=== PATIENT | male | born 1960 | race Caucasian/White ===

== ENCOUNTER 2020-05-24 12:21 | Inpatient (IN) | payer MEDICARE, MEDICAID ==
[~2020-05-24] VITALS: Ht 172.7 cm; Wt 55.8 kg
--- NOTE | 2020-05-24 12:44 | NUR ---
PATIENT BIB EMS WITH CHIEF C/O WEAKNESS WITH STANDING. PER EMS PATIENT HAS HAD 5 GLF'S IN THE LAST 3 WEEKS, WITH THE MOST RECENT ONE BEING LAST NIGHT WITH POSITIVE LOC, PATIENT UNSURE HOW LONG HE WAS DOWN FOR. PATIENT REPORTS DIARRHEA FOR THE LAST 3 DAYS, AND EVERYTIME HE STANDS HE FEELS WEAK, LIGHTHEADED AND NAUSEATED. VSS EN ROUTE, 18 GAUGE IV STARTED LEFT AC EN ROUTE. PATIENT REPORTS DRINKING "7 BEERS PER DAY," STATES LAST DRINK WAS "3-4 DAYS AGO." RUPERT VSS, SIDE RAILS UP X2, URINAL WITHIN REACH.
--- NOTE | 2020-05-24 13:36 | NUR ---
PATIENT RESTING IN GURNEY WITH EYES CLOSED, RESP EVEN AND UNLABORED, VSS, SIDE RAILS UP X2, CALL LIGHT WITHIN REACH. WAITING FOR PROVIDER ORDERS.
--- NOTE | 2020-05-24 13:42 | NUR ---
ERMD AT BEDSIDE FOR EVALUATION.
[2020-05-24] MEDS ORDERED: SODIUM CHLORIDE 0.9% 1,000ML IVBOLUS ONE (14:00)
[2020-05-24] MEDS ORDERED: SODIUM CHLORIDE FLUSH 10ML SYR IVF ONE (14:00)
--- NOTE | 2020-05-24 14:00 | NUR ---
PATIENT TO IMAGING. Addendum: 05/24/20 at 1410 by [email or web address] PATIENT NOT IN IMAGING, X-RAY AT BEDSIDE.
[2020-05-24 14:09] LABS: BASOPHILS % (AUTO) 0 % (0-1); EOSINOPHILS % (AUTO) 1 % (1-7); LYMPHOCYTES % (AUTO) 7 % (22-44); MEAN CORPUSCULAR HEMOGLOBIN 33.5 pg (27.5-34.5); MEAN CORPUSCULAR HGB CONC 34.6 g/dL (33.2-36.2); MEAN PLATELET VOLUME 7.8 fL (7.4-10.4); MONOCYTES % (AUTO) 13 % (2-9); NEUTROPHILS % (AUTO) 80 % (42-75); PLATELET COUNT 191 x10^3/uL (130-400); RED BLOOD COUNT 3.79 x10^6/uL (4.38-5.82); RED CELL DISTRIBUTION WIDTH 13.4 % (9.4-14.8)
--- NOTE | 2020-05-24 14:10 | NUR ---
URINE SAMPLE COLLECTED AND SENT TO LAB, [facility]ARCELA GARCIA, PATIENT TO CT.
[2020-05-24 14:21] LABS: ALANINE AMINOTRANSFERASE 55 U/L (12-78); ALBUMIN 3.4 g/dL (3.4-5.0); ANION GAP 8 mmol/L (5-15); CALCIUM 8.6 mg/dL (8.5-10.1); CHLORIDE 87 mmol/L (98-107); CREATININE 0.71 mg/dL (0.7-1.3)
[2020-05-24 14:28] LABS: MICROSCOPIC NOT IND
[2020-05-24 14:31] LABS: ALKALINE PHOSPHATASE 114 U/L (45-117); BILIRUBIN,TOTAL 0.6 mg/dL (0.2-1.0); CREATINE KINASE, TOTAL 26 U/L (39-308); TOTAL PROTEIN 7.1 g/dL (6.4-8.2); TROPONIN I < 0.015 ng/mL (0.000-0.045)
[2020-05-24 14:39] LABS: MD NO
--- NOTE | 2020-05-24 15:18 | NUR ---
PATIENT RESTING IN GURNEY, NADN, WARM BLANKET PROVIDED, SIDE RAILS UP X2, CALL LIGHT WITHIN REACH. PATIENT UP FOR RECHECK.
[2020-05-24] MEDS ORDERED: POTASSIUM CHLORIDE 20 MEQ PACKET PO ONE (15:30)
[2020-05-24] MEDS ORDERED: SODIUM CHLORIDE 0.9% 1,000 ML IV ONE (15:30)
--- NOTE | 2020-05-24 15:40 | NUR ---
ERMD AT BEDSIDE FOR EVALUATION. Addendum: 05/24/20 at 1623 by [email or web address] ERMD AT BEDSIDE TO DISCUSS POC.
--- NOTE | 2020-05-24 16:40 | NUR ---
PATIENT SITTING IN GURNEY WATCHING TV, NADN, PATIENT'S BP 200/112, ERMD NOTIFIED,OTHER VSS, SIDE RAILS UP X2, CALL LIGHT WITHIN REACH. WAITING FOR ROOM ASSIGNMENT UPSTAIRS.
--- NOTE | 2020-05-24 16:48 | NUR ---
ATTEMPTED TO CALL REPORT, ON HOLD FOR SEVERAL MINUTES, WILL TRY AGAIN.
[2020-05-24] MEDS ORDERED: POTASSIUM CHLORIDE 20 MEQ PACKET ONE (16:50)
--- NOTE | 2020-05-24 16:56 | NUR ---
REPORT CALLED TO FILOMENA BAUTISTA ON MEDICAL TELEMETRY FOR TRANSFER OF PATIENT CARE.
[2020-05-24] MEDS ORDERED: LABETALOL 5MG/ML, 20ML ONE (17:14)
--- NOTE | 2020-05-24 17:26 | NUR ---
PATIENT MEDICATED PER eMAR FOR BP, WILL RECHECK BP BEFORE PATIENT TRANSFERS TO FLOOR.
--- NOTE | 2020-05-24 17:40 | NUR ---
PATIENT TRANSFERRED TO FLOOR IN STABLE CONDITION VIA GURNEY WITH PRINCIPAL ACCOUNT CLERK. ALL PATIENT BELONGINGS TAKEN TO FLOOR WITH PATIENT.
[2020-05-24 17:42] VITALS: BP 173/105
[2020-05-24] MEDS ORDERED: LABETALOL 5MG/ML, 20ML IVPush ONE (18:00)
[2020-05-24] MEDS ORDERED: ONDANSETRON 2MG/ML, 2ML IVPush PRN (19:30)
[2020-05-24] MEDS ORDERED: GABAPENTIN 300 MG CAPSULE PO PRN (19:30)
[2020-05-24] MEDS ORDERED: hydrALAzine 20 MG/ML, 1ML IVPush PRN (19:30)
[2020-05-24] MEDS ORDERED: LORazepam 2 MG/ML, 1ML IV PRN ×5 (19:30)
[2020-05-24] MEDS ORDERED: DOCUSATE 100 MG CAPSULE PO PRN (19:30)
[2020-05-24] MEDS ORDERED: BISACODYL 10 MG SUPP PR PRN (19:30)
[2020-05-24] MEDS ORDERED: LORazepam 1MG TABLET PO PRN (19:30)
[2020-05-24] MEDS ORDERED: ACETAMINOPHEN 325 MG TABLET PO PRN (19:30)
[2020-05-24] MEDS ORDERED: ONDANSETRON ODT 4 MG PO PRN (19:30)
[2020-05-24] MEDS ORDERED: POTASSIUM CHLORIDE 40 MEQ in SODIUM CHLORIDE 0.9% 500 ML IV ONE (20:30)
[2020-05-24] MEDS: SODIUM CHLORIDE 0.9% 1,000 ML IV SCH (20:36)
[2020-05-24] MEDS: NICOTINE 14MG/24 HR PATCH.TD24 TD SCH (20:36)
[2020-05-24] MEDS: SODIUM CHLORIDE 1 GM TABLET PO SCH (20:36)
[2020-05-24] MEDS: HEPARIN 5,000 UNITS/ML, 1ML SQ SCH (20:37)
[2020-05-24] MEDS: AMLODIPINE 5 MG TABLET PO SCH (20:42)
[2020-05-24 20:51] VITALS: BP_SYST 159; BP_SYST 162; BP_DIAS 96; BP_DIAS 99
[2020-05-24 20:52] VITALS: BP 134/93
[2020-05-24 21:48] LABS: MICROSCOPIC NOT IND
[2020-05-24 22:00] LABS: AMPHETAMINE SCREEN, URINE Negative (Negative); BARBITURATE SCREEN, URINE Negative (Negative); BENZODIAZEPINE SCREEN, URINE Negative (Negative); CANNABINOID SCREEN, URINE Positive (Negative); COCAINE SCREEN, URINE Negative (Negative); METHADONE SCREEN, URINE Negative (Negative); OPIATE SCREEN, URINE Negative (Negative); SODIUM,URINE RANDOM 119 mmol/L
[2020-05-25] VITALS (7 sets, daily range): BP systolic 122–170; BP diastolic 84–101
[2020-05-25 03:38] LABS: BASOPHILS % (AUTO) 2 % (0-1); EOSINOPHILS % (AUTO) 2 % (1-7); LYMPHOCYTES % (AUTO) 13 % (22-44); MD NO; MEAN CORPUSCULAR HEMOGLOBIN 33.6 pg (27.5-34.5); MEAN CORPUSCULAR HGB CONC 34.5 g/dL (33.2-36.2); MEAN PLATELET VOLUME 7.6 fL (7.4-10.4); MONOCYTES % (AUTO) 15 % (2-9); NEUTROPHILS % (AUTO) 68 % (42-75); PLATELET COUNT 198 x10^3/uL (130-400); RED BLOOD COUNT 3.37 x10^6/uL (4.38-5.82); RED CELL DISTRIBUTION WIDTH 13.6 % (9.4-14.8)
[2020-05-25 03:44] LABS: INTERNATIONAL NORMALIZED RATIO 0.93 (0.93-1.1); PROTHROMBIN TIME 9.9 Seconds (9.6-11.5)
[2020-05-25 03:45] LABS: ALANINE AMINOTRANSFERASE 49 U/L (12-78); ANION GAP 7 mmol/L (5-15); CALCIUM 7.8 mg/dL (8.5-10.1); CHLORIDE 96 mmol/L (98-107)
[2020-05-25 03:54] LABS: ALKALINE PHOSPHATASE 96 U/L (45-117); BILIRUBIN,TOTAL 0.6 mg/dL (0.2-1.0); CHOL/HDL RATIO 3.1; CHOLESTEROL, TOTAL 180 mg/dL (140-239); CREATININE 0.53 mg/dL (0.7-1.3); HDL CHOL % 32 % (26-37); HDL CHOLESTEROL (DIRECT) 58 mg/dL (40-60); LDL CHOLESTEROL,CALCULATED 106 mg/dL (54-169); LDL/HDL RATIO 1.8 (0.5-3.0); TOTAL PROTEIN 6.3 g/dL (6.4-8.2); TRIGLYCERIDES 81 mg/dL (50-200); VLDL CHOLESTEROL 16 mg/dL (0-25)
[2020-05-25] MEDS: HEPARIN 5,000 UNITS/ML, 1ML SQ SCH ×3 (04:28→20:41)
[2020-05-25] MEDS: FOLIC ACID 1 MG TABLET PO SCH (09:04)
[2020-05-25] MEDS: SODIUM CHLORIDE 1 GM TABLET PO SCH ×2 (09:04→17:55)
[2020-05-25] MEDS: AMLODIPINE 5 MG TABLET PO SCH ×2 (09:04→17:55)
[2020-05-25] MEDS: MULTIVITAMINS/MINERALS TABLET PO SCH (09:04)
[2020-05-25] MEDS: THIAMINE 100MG TABLET PO SCH (09:04)
[2020-05-25] MEDS: PANTOPRAZOLE 40MG TABLET PO SCH (09:04)
[2020-05-25] MEDS: SODIUM CHLORIDE 0.9% 1,000 ML IV SCH (14:25)
[2020-05-25] MEDS: NICOTINE 14MG/24 HR PATCH.TD24 TD SCH (20:41)
[2020-05-26 01:07] VITALS: BP 158/96
[2020-05-26] MEDS: HEPARIN 5,000 UNITS/ML, 1ML SQ SCH ×3 (03:40→20:23)
[2020-05-26] MEDS: SODIUM CHLORIDE 0.9% 1,000 ML IV SCH ×3 (03:43→20:22)
[2020-05-26 04:25] LABS: BASOPHILS % (AUTO) 1 % (0-1); EOSINOPHILS % (AUTO) 4 % (1-7); LYMPHOCYTES % (AUTO) 18 % (22-44); MEAN CORPUSCULAR HEMOGLOBIN 33.6 pg (27.5-34.5); MEAN CORPUSCULAR HGB CONC 34.9 g/dL (33.2-36.2); MEAN PLATELET VOLUME 7.6 fL (7.4-10.4); MONOCYTES % (AUTO) 20 % (2-9); NEUTROPHILS % (AUTO) 57 % (42-75); PLATELET COUNT 244 x10^3/uL (130-400); RED BLOOD COUNT 3.46 x10^6/uL (4.38-5.82); RED CELL DISTRIBUTION WIDTH 13.5 % (9.4-14.8)
[2020-05-26 04:28] LABS: MD NO
[2020-05-26 04:39] LABS: ANION GAP 8 mmol/L (5-15); CALCIUM 7.9 mg/dL (8.5-10.1); CHLORIDE 96 mmol/L (98-107); CREATININE 0.44 mg/dL (0.7-1.3)
[2020-05-26] MEDS: AMLODIPINE 5 MG TABLET PO SCH ×3 (05:17→21:37)
[2020-05-26 08:24] VITALS: BP 144/97
[2020-05-26] MEDS ORDERED: POTASSIUM CHLORIDE 20 MEQ TAB.ER.PRT PO ONE (08:30)
[2020-05-26] MEDS ORDERED: POTASSIUM CHLORIDE 40 MEQ in SODIUM CHLORIDE 0.9% 500 ML IV ONE (08:30)
[2020-05-26] MEDS ORDERED: ALBUMIN HUMAN 25% 100 ML IV ONE (08:30)
[2020-05-26] MEDS: SODIUM CHLORIDE 1 GM TABLET PO SCH ×3 (09:00→21:36)
[2020-05-26] MEDS: THIAMINE 100MG TABLET PO SCH (09:22)
[2020-05-26] MEDS: MULTIVITAMINS/MINERALS TABLET PO SCH (09:22)
[2020-05-26] MEDS: PANTOPRAZOLE 40MG TABLET PO SCH (09:23)
[2020-05-26] MEDS: FOLIC ACID 1 MG TABLET PO SCH (09:23)
[2020-05-26 13:15] VITALS: BP 124/85
[2020-05-26 19:51] VITALS: BP 144/85
[2020-05-26] MEDS: NICOTINE 14MG/24 HR PATCH.TD24 TD SCH (20:23)
[2020-05-27 02:21] VITALS: BP 132/82
[2020-05-27] MEDS: SODIUM CHLORIDE 0.9% 1,000 ML IV SCH (03:54)
[2020-05-27] MEDS: HEPARIN 5,000 UNITS/ML, 1ML SQ SCH ×3 (03:58→20:23)
[2020-05-27 05:34] LABS: BASOPHILS % (AUTO) 1 % (0-1); EOSINOPHILS % (AUTO) 4 % (1-7); LYMPHOCYTES % (AUTO) 16 % (22-44); MEAN CORPUSCULAR HEMOGLOBIN 33.9 pg (27.5-34.5); MEAN CORPUSCULAR HGB CONC 35.3 g/dL (33.2-36.2); MEAN PLATELET VOLUME 7.1 fL (7.4-10.4); MONOCYTES % (AUTO) 19 % (2-9); NEUTROPHILS % (AUTO) 59 % (42-75); PLATELET COUNT 299 x10^3/uL (130-400); RED BLOOD COUNT 3.34 x10^6/uL (4.38-5.82); RED CELL DISTRIBUTION WIDTH 13.7 % (9.4-14.8)
[2020-05-27 05:37] LABS: MD NO
[2020-05-27 05:38] LABS: ANION GAP 7 mmol/L (5-15); CALCIUM 8.5 mg/dL (8.5-10.1); CHLORIDE 98 mmol/L (98-107)
[2020-05-27 05:39] LABS: CREATININE 0.47 mg/dL (0.7-1.3)
[2020-05-27 07:46] VITALS: BP 160/93
[2020-05-27] MEDS: THIAMINE 100MG TABLET PO SCH (09:03)
[2020-05-27] MEDS: MULTIVITAMINS/MINERALS TABLET PO SCH (09:03)
[2020-05-27] MEDS: PANTOPRAZOLE 40MG TABLET PO SCH (09:03)
[2020-05-27] MEDS: AMLODIPINE 5 MG TABLET PO SCH ×2 (09:04→20:23)
[2020-05-27] MEDS: SODIUM CHLORIDE 1 GM TABLET PO SCH ×2 (09:04→20:24)
[2020-05-27] MEDS: FOLIC ACID 1 MG TABLET PO SCH (09:04)
[2020-05-27 11:55] VITALS: BP 121/86
[2020-05-27] MEDS ORDERED: POTASSIUM CHLORIDE 20 MEQ TAB.ER.PRT PO ONE (12:30)
[2020-05-27 13:08] VITALS: BP 119/82
[2020-05-27] MEDS: ALBUMIN HUMAN 25% 100 ML IV SCH ×2 (14:11→20:22)
[2020-05-27] MEDS: POLYETHYLENE GLYCOL 17 GM PACKET PO PRN (18:26)
[2020-05-27 20:19] VITALS: BP 149/89
[2020-05-27] MEDS: NICOTINE 14MG/24 HR PATCH.TD24 TD SCH (20:23)
[2020-05-28 00:53] VITALS: BP 165/95
[2020-05-28] MEDS: HEPARIN 5,000 UNITS/ML, 1ML SQ SCH ×3 (05:23→20:19)
[2020-05-28 06:25] LABS: ANION GAP 7 mmol/L (5-15); CHLORIDE 96 mmol/L (98-107)
[2020-05-28 07:13] VITALS: BP 156/91
[2020-05-28] MEDS: PANTOPRAZOLE 40MG TABLET PO SCH (07:43)
[2020-05-28] MEDS: SODIUM CHLORIDE 1 GM TABLET PO SCH ×2 (09:44→20:19)
[2020-05-28] MEDS: MULTIVITAMINS/MINERALS TABLET PO SCH (09:44)
[2020-05-28] MEDS: THIAMINE 100MG TABLET PO SCH (09:45)
[2020-05-28] MEDS: FOLIC ACID 1 MG TABLET PO SCH (09:45)
[2020-05-28] MEDS: AMLODIPINE 5 MG TABLET PO SCH ×2 (09:47→20:19)
[2020-05-28 12:22] VITALS: BP 152/89
[2020-05-28 20:00] VITALS: BP_SYST 146; BP_SYST 166; BP_DIAS 82; BP_DIAS 87
[2020-05-28] MEDS: NICOTINE 14MG/24 HR PATCH.TD24 TD SCH (20:19)
[2020-05-29 02:00] VITALS: BP 138/76
[2020-05-29] MEDS: HEPARIN 5,000 UNITS/ML, 1ML SQ SCH ×3 (04:30→21:02)
[2020-05-29 05:42] LABS: BASOPHILS % (AUTO) 1 % (0-1); EOSINOPHILS % (AUTO) 3 % (1-7); LYMPHOCYTES % (AUTO) 10 % (22-44); MEAN CORPUSCULAR HEMOGLOBIN 33.5 pg (27.5-34.5); MEAN CORPUSCULAR HGB CONC 34.7 g/dL (33.2-36.2); MEAN PLATELET VOLUME 6.7 fL (7.4-10.4); MONOCYTES % (AUTO) 14 % (2-9); NEUTROPHILS % (AUTO) 72 % (42-75); PLATELET COUNT 347 x10^3/uL (130-400); RED BLOOD COUNT 3.35 x10^6/uL (4.38-5.82); RED CELL DISTRIBUTION WIDTH 13.7 % (9.4-14.8)
[2020-05-29 05:43] LABS: MD NO
[2020-05-29 06:01] LABS: CHLORIDE 98 mmol/L (98-107)
[2020-05-29 06:07] LABS: ANION GAP 8 mmol/L (5-15); CALCIUM 8.9 mg/dL (8.5-10.1)
[2020-05-29 07:32] VITALS: BP 137/87
[2020-05-29] MEDS: PANTOPRAZOLE 40MG TABLET PO SCH (07:39)
[2020-05-29] MEDS: FOLIC ACID 1 MG TABLET PO SCH (09:28)
[2020-05-29] MEDS: AMLODIPINE 5 MG TABLET PO SCH ×2 (09:28→21:02)
[2020-05-29] MEDS: SODIUM CHLORIDE 1 GM TABLET PO SCH ×2 (09:28→21:00)
[2020-05-29] MEDS: THIAMINE 100MG TABLET PO SCH (09:28)
[2020-05-29 12:19] VITALS: BP 126/81
[2020-05-29] MEDS: POLYETHYLENE GLYCOL 17 GM PACKET PO PRN (15:34)
[2020-05-29] MEDS ORDERED: THIA100T67 PO (17:50)
[2020-05-29] MEDS ORDERED: HEPA50002 SQ (17:50)
[2020-05-29] MEDS ORDERED: ONDA4TAB13 PO (17:50)
[2020-05-29] MEDS ORDERED: DOCU-131 PO (17:50)
[2020-05-29] MEDS ORDERED: PANT40TA6 PO (17:50)
[2020-05-29] MEDS ORDERED: ACET325T26 PO (17:50)
[2020-05-29] MEDS ORDERED: GABA300C PO (17:50)
[2020-05-29] MEDS ORDERED: BISA10SU4 PR (17:50)
[2020-05-29] MEDS ORDERED: SODI1TAB PO (17:50)
[2020-05-29] MEDS ORDERED: AMLO-150 PO (17:50)
[2020-05-29] MEDS ORDERED: NICO-486 TD (17:50)
[2020-05-29] MEDS ORDERED: POLY17PO5 PO (17:50)
[2020-05-29] MEDS ORDERED: FOLI1TAB32 PO (17:50)
[2020-05-29 19:51] VITALS: BP 147/96
[2020-05-29] MEDS: NICOTINE 14MG/24 HR PATCH.TD24 TD SCH (21:02)
[2020-05-30 01:32] VITALS: BP 133/94
[2020-05-30] MEDS: HEPARIN 5,000 UNITS/ML, 1ML SQ SCH ×2 (04:08→12:12)
[2020-05-30 05:40] LABS: ANION GAP 3 mmol/L (5-15); CALCIUM 9.4 mg/dL (8.5-10.1); CHLORIDE 98 mmol/L (98-107)
[2020-05-30 05:41] LABS: CREATININE 0.54 mg/dL (0.7-1.3)
[2020-05-30 07:30] VITALS: BP 155/89
[2020-05-30] MEDS: FOLIC ACID 1 MG TABLET PO SCH (08:39)
[2020-05-30] MEDS: PANTOPRAZOLE 40MG TABLET PO SCH (08:39)
[2020-05-30] MEDS: THIAMINE 100MG TABLET PO SCH (08:39)
[2020-05-30] MEDS: SODIUM CHLORIDE 1 GM TABLET PO SCH (08:39)
[2020-05-30] MEDS: AMLODIPINE 5 MG TABLET PO SCH (08:39)
[2020-05-30 12:22] VITALS: BP 142/80
== END 2020-05-30 13:18 | DRG 644 ==
LOC: ED 15:40 → EDIP 15:50 → ED 16:20 → 4EST 17:32
PROVIDERS: ADMIT Hospitalist; ATTEND Internal Medicine
DX: E22.2 Syndrome of inappropriate secretion of antidiuretic hormone (principal); F10.94 Alcohol use, unspecified with alcohol-induced mood disorder; E87.6 Hypokalemia; E78.5 Hyperlipidemia, unspecified; F12.90 Cannabis use, unspecified, uncomplicated; F41.9 Anxiety disorder, unspecified; I10 Essential (primary) hypertension; F32.9 Major depressive disorder, single episode, unspecified; R29.6 Repeated falls; F17.210 Nicotine dependence, cigarettes, uncomplicated; Y90.9 Presence of alcohol in blood, level not specified; Z79.899 Other long term (current) drug therapy; Z80.3 Family history of malignant neoplasm of breast; Z82.5 Family history of asthma and other chronic lower respiratory diseases; Z91.14 Patient's other noncompliance with medication regimen; W18.39XA Other fall on same level, initial encounter; Y93.89 Activity, other specified; Y92.89 Other specified places as the place of occurrence of the external cause; Y99.8 Other external cause status; J43.9 Emphysema, unspecified; E86.0 Dehydration; T43.225A Adverse effect of selective serotonin reuptake inhibitors, initial encounter
CPT/HCPCS: 36415; 70450; 71045; 80048; 80053; 80061; 80307; 80320; 81003; 82550; 83036; 83605; 83735; 83930; 83935; 84100; 84145; 84295; 84300; 84443; 84484; 85025; 85379; 85610; 87040; 93005; 93306; 96361; 96374; 99285; G0378; J1644; J3480; P9047; G0480; J7030; J7040